=== PATIENT | female | born 1970 | race African-American/Black ===

== ENCOUNTER 2017-04-13 23:11 | Emergency (ER) | payer SELFPAY ==
[~2017-04-13] VITALS: Ht 152.4 cm; Wt 123.8 kg
[2017-04-13 23:49] VITALS: Ht 152.4 cm; Wt 123.8 kg
[2017-04-14 01:17] VITALS: BP 131/84
== END 2017-04-14 01:17 | disposition home or self-care (01) ==
LOC: ED 23:11
DX: G43.909 Migraine, unspecified, not intractable, without status migrainosus (principal); Z90.49 Acquired absence of other specified parts of digestive tract
CPT/HCPCS: J1200; J2550